=== PATIENT | female | born 1985 ===

== ENCOUNTER 2019-12-30 05:15 | Day surgery (SDC) | payer OTHER ==
[~2019-12-30 05:15] MED LIST: ATIVAN0.5 M1 PO; COZAAR100 MG PO; CYMBAL PO; FOCALIN10 MG PO; LITHIUM CARBON300 M1 PO; SERAQUEL PO
[2019-12-30] MEDS ORDERED: PERCOCET 5-3251 EACH PO (09:26)
== END 2019-12-30 11:15 | disposition home or self-care (01) ==
LOC: CIR.AMB 05:15 → ADM 07:00 → CIR.AMB 07:00
PROVIDERS: ATTEND Obstetrics & Gynecology Gynecology
DX: N83.12 Corpus luteum cyst of left ovary (principal); N80.2 Endometriosis of fallopian tube; Q50.6 Other congenital malformations of fallopian tube and broad ligament; N73.6 Female pelvic peritoneal adhesions (postinfective); Z20.828 Contact with and (suspected) exposure to other viral communicable diseases

== ENCOUNTER 2024-10-28 08:00 | Inpatient (IN) | payer OTHER ==
[2024-10-23 12:20] VITALS: BP 111/78
[2024-10-23 15:31] LABS: RH POSITIVE
[~2024-10-28] VITALS: Ht 160 cm; Wt 104.3 kg
[~2024-10-28 08:00] MED LIST changes: +PERCOCET 5-3251 EACH PO; +TOPROL XL50 M1 PO
[2024-10-28] MEDS ORDERED: METRONIDAZOLE/SODIUM CHLORIDE 500 MG/100 ML PIGGYBACK IV ONE (12:20)
[2024-10-28] MEDS ORDERED: LIDOCAINE HCL 1%/EPINEPHRINE 20ML VIAL IJ ONE (12:58)
[2024-10-28] MEDS ORDERED: CHLORHEXIDINE GLUCONATE 120 ML BOTTLE TOP ONE (12:58)
[2024-10-28] MEDS ORDERED: POVIDONE-IODINE 118 ML BOTT TOP ONE (12:58)
[2024-10-28] MEDS ORDERED: BUPIVACAINE HCL/MPF 0.5% 30ML VIAL ONE (12:58)
[2024-10-28] MEDS ORDERED: HEMOSTATIC MATRIX 1 KIT KIT TOP ONE (14:48)
[2024-10-28] MEDS ORDERED: SURGIFLO APPLICATOR 1 EACH APPL TOP ONE (14:50)
[2024-10-28] MEDS ORDERED: SUGAMMADEX SODIUM 200 MG/2 ML VIAL IV ONE (14:57)
[2024-10-28] MEDS ORDERED: MORPHINE SULFATE 4 MG/ML VIAL IV PRN (15:15)
[2024-10-28] MEDS ORDERED: ONDANSETRON HCL 2 MG/ML VIAL IV PRN (15:15)
[2024-10-28] MEDS ORDERED: MORPHINE SULFATE 4 MG/ML VIAL IV ONE ×2 (16:10→16:40)
[2024-10-28] MEDS ORDERED: METROnidazole 500 MG TABLET PO SCH (17:00)
[2024-10-28 19:37] LABS: BASO % 0.3 % (0.1-1.2); EOS # 0.04 (0.04-0.54); EOS % 0.3 % (0.7-7.0); HEMATOCRIT 36.3 % (34.1-44.9); HEMOGLOBIN 12.1 g/dL (11.2-15.7); LYMPH # 1.28 (1.18-3.74); LYMPH % 8.7 % (19.3-53.1); MEAN CORPUSCULAR HEMOGLOBIN 29.2 pg (25.6-32.2); MONO # 0.66 (0.24-0.82); MONO % 4.5 % (4.7-12.5); NEUT # 12.68 (1.56-6.13); NEUT % 85.8 % (34.0-71.1); PLATELET COUNT 335 K/uL (163-369); RED BLOOD COUNT 4.15 M/uL (3.93-5.22); RED CELL DISTRIBUTION WIDTH 12.8 % (11.6-14.4)
[2024-10-28] MEDS ORDERED: FAMOtidine 20 MG TABLET PO SCH (21:00)
[2024-10-28] MEDS ORDERED: LORazepam 0.5 MG TABLET PO SCH (21:00)
[2024-10-28 21:24] VITALS: BP 116/73
[2024-10-29] VITALS: BP 110/75
[2024-10-29 05:00] VITALS: BP 131/76
[2024-10-29] MEDS ORDERED: IBU800 MG PO (07:04)
[2024-10-29] MEDS ORDERED: NEURONTIN300 MG PO (07:05)
[2024-10-29] MEDS ORDERED: SIMETHICONE80 MG PO (07:05)
[2024-10-29 08:00] VITALS: BP 103/66
[2024-10-29] MEDS ORDERED: LOSARTAN POTASSIUM 100 MG TABLET PO SCH (09:00)
[2024-10-29] MEDS ORDERED: QUETIAPINE FUMARATE 100 MG TABLET PO SCH ×2 (09:00→21:00)
[2024-10-29] MEDS ORDERED: LITHIUM CARBONATE 300 MG CAPSULE PO SCH (09:00)
[2024-10-29] MEDS ORDERED: ENOXAPARIN SODIUM 40 MG/0.4 ML SYRINGE SUBCUTANEO SCH (09:00)
[2024-10-29] MEDS ORDERED: METOPROLOL SUCCINATE 25 MG TAB.SR.24H PO SCH (09:00)
== END 2024-10-29 10:24 | disposition home or self-care (01) | DRG 743 ==
LOC: CIR.AMB 08:00 → O/R 16:39 → OB/GYN 18:50
PROVIDERS: ADMIT Obstetrics & Gynecology Gynecology; ATTEND Obstetrics & Gynecology Gynecology
PROC: 0UT74ZZ Resection of Bilateral Fallopian Tubes, Percutaneous Endoscopic Approach (ICD-10-PCS; 2024-10-28)
PROC: 0UT14ZZ Resection of Left Ovary, Percutaneous Endoscopic Approach (ICD-10-PCS; 2024-10-28)
PROC: 0UT94ZZ Resection of Uterus, Percutaneous Endoscopic Approach (ICD-10-PCS; principal; 2024-10-28 08:45)
DX: D25.1 Intramural leiomyoma of uterus (principal); D25.2 Subserosal leiomyoma of uterus; R10.2 Pelvic and perineal pain; D27.1 Benign neoplasm of left ovary; N83.12 Corpus luteum cyst of left ovary; N80.203 Endometriosis of bilateral fallopian tubes, unspecified depth; N80.102 Endometriosis of left ovary, unspecified depth